=== PATIENT | male | born 1960 | race Caucasian/White ===

== ENCOUNTER 2021-09-18 13:59 | Emergency (ER) | payer BC ==
[2021-09-18] MEDS ORDERED: Sodium Chloride 0.9% 10 ML Syringe FLUSH PRN (14:14)
[2021-09-18 14:48] LABS: CHLORIDE,CL 104 mmol/L (98-107); SODIUM,NA 140 mmol/L (136-145)
== END 2021-09-18 15:25 | disposition home or self-care (01) ==
LOC: DL.ED 13:59
DX: R07.89 Other chest pain (principal); I48.91 Unspecified atrial fibrillation; Z88.8 Allergy status to other drugs, medicaments and biological substances; Z79.82 Long term (current) use of aspirin
CPT/HCPCS: 36415; 71045; 80053; 82150; 83690; 84484; 85025; 85379; 93005; 93010; 99285; 99285-25

== ENCOUNTER 2024-01-25 06:33 | Day surgery (SDC) | payer BC ==
[2024-01-25] MEDS ORDERED: Midazolam 1 MG/ML 2 ML SDV IV ONE (06:34)
[2024-01-25] MEDS ORDERED: fentaNYL 100 MCG/2 ML SDV IV ONE (06:34)
[2024-01-25] MEDS: Dextrose 5%-0.45% NaCl 1,000 ML IV SCH (06:59)
[2024-01-25] MEDS ORDERED: Midazolam 1 MG/ML 2 ML SDV ONE (07:20)
[2024-01-25] MEDS ORDERED: fentaNYL 100 MCG/2 ML SDV ONE (07:21)
[2024-01-25] MEDS: fentaNYL 100 MCG/2 ML SDV IV ONE ×2 (07:24→07:25)
[2024-01-25] MEDS: Midazolam 1 MG/ML 2 ML SDV IV ONE ×5 (07:26→07:43)
== END 2024-01-25 10:05 | disposition home or self-care (01) ==
LOC: DL.ENDO 06:33
PROVIDERS: ATTEND Internal Medicine Gastroenterology
DX: K64.8 Other hemorrhoids (principal)
CPT/HCPCS: 45378; J2250; J3010; J7799